=== PATIENT | male | born 1955 | race Caucasian/White ===

== ENCOUNTER 2023-07-20 13:57 | Emergency (ER) | payer OTHER, MEDICARE, MEDICAID, SELFPAY ==
[2023-07-20 14:14] VITALS: BP 166/71; PULSE 62; RESP 16; TEMP 36.1; O2SAT 99
--- NOTE | 2023-07-20 14:51 | ED.GENADULT ---
HPI - General Adult General Chief complaint: Wound/Laceration Stated complaint: Skin Sore/Right Leg/Toe Time Seen by Provider: 07/20/23 14:51 Source: patient, RN notes reviewed and old records reviewed Mode of arrival: ambulatory Limitations: no limitations History of Present Illness HPI narrative: 68-year-old male to [facility] with complaint right foot pain and swelling for 2 weeks. Patient reports that he was seen 8 days ago at [facility] and given a prescription for Keflex. Patient reports finishing entire course of antibiotic and states he has had increased redness, swelling, tightness right ankle and foot. Patient endorses discoloration great toe with drainage. patient denies fever, nausea. Patient in no acute distress in exam room. Related Data Home Medications Medication Instructions Recorded Confirmed amlodipine 5 mg tablet mg 07/20/23 glipizide 10 mg tablet mg 07/20/23 insulin degludec 100 unit/mL (3 unit subcut 07/20/23 mL) subcutaneous pen metoprolol succinate 200 mg mg PO 07/20/23 tablet,extended release 24 hr semaglutide 0.25 mg or 0.5 mg (2 mg subcut 07/20/23 mg/3 mL) subcutaneous pen injector (Ozempic) Allergies Allergy/AdvReac Type Severity Reaction Status Date / Time No Known Allergies Allergy Unverified 07/20/23 15:37 Review of Systems Review of Systems: All systems reviewed & are unremarkable except as noted in HPI and below Constitutional: Constitutional: Reports as per HPI, Denies body ache(s), Denies chills, Denies fatigue and Denies fever(s) Eyes: Eyes: Reports no additional eye complaints ENT: Reports system reviewed and no additional complaints, except as documented Cardiovascular: Cardiovascular: Reports no additional cardiovascular complaints, Denies chest pain and Denies dyspnea Respiratory: Respiratory: Reports no additional respiratory complaints, Denies cough and Denies dyspnea Musculoskeletal: Musculoskeletal: Reports as per HPI and Reports other ( Right foot pain) Integumentary/Breasts: Skin/Breast: Reports wounds ( right great toe with drainage) Neurologic: Reports as per HPI and Reports Sensory deficit (Neuro) ( right ankle and foot per patient) Psychiatric: Psychiatric: Reports no additional psychiatric complaints [facility] Family History Family History Mother Hypertension Family history of heart disease in male family member before age 55 Father Family history of alcoholism Sibling Family history of malignant neoplasm Family history of diabetes mellitus in first degree relative Family history of heart disease in male family member before age 55 Social History Social History Smoking status: Never smoker Alcohol intake: current Comments At the time of my signature, I reviewed and agree with the nursing past medical, surgical, social, and family history. There is no relevant family history pertinent to the patient complaint. Exam Const: General: cooperative, healthy appearing, comfortable, no acute distress, alert and well nourished Nutritional Appearance: well nourished Orientation/consciousness: patient oriented x3 Limitations: no limitations HENMT: Head: normal to inspection Ears: external ears normal Face/Nose/Sinus: Normal external nose present, Normal nares present, normal facial exam, No erythema and No edema Face and sinus: normal facial exam, no erythema and no edema Mouth: Yes Normal oral and palatal mucosa present Eyes: General: appearance normal, both eyes and all related structures Neck: Neck: normal visual inspection, full ROM and no meningeal signs Lymphatic: no lymphadenopathy noted and no lymphedema noted Chest: Chest palpation & inspection: normal inspection of the chest Resp: Effort & Inspection: normal respiratory effort and able to speak in complete sentences A
== END 2023-07-20 15:21 | disposition short-term general hospital (02) ==
PROVIDERS: Emergency Provider Nurse Practitioner Family
DX: L03.115 Cellulitis of right lower limb (principal); I10 Essential (primary) hypertension; E11.51 Type 2 diabetes mellitus with diabetic peripheral angiopathy without gangrene
CPT/HCPCS: 99202; G0463